=== PATIENT | male | born 1930 | race Caucasian/White ===

== ENCOUNTER 2016-06-10 10:00 | Observation (INO) | payer OTHER ==
[~2016-06-10] VITALS: Ht 182.9 cm; Wt 60.5 kg
[~2016-06-10 10:00] MED LIST: ASPIRIN E.C.81 M1 PO; CLARITIN10 M3 PO; Ecotrin PO; ISOSORBIDE MONO30 MG PO; LIPITOR80 MG PO; LISINOPRIL20 MG PO; LISINOPRIL40 MG PO; LITE COAT ASPI325 M1 PO; LORATADINE10 M2 PO; LOSARTAN POTASS25 MG PO; MIRALAX255 GM PO; MULTI VITAMIN1 EACH PO; NEXIUM40 MG PO; NITROSTAT,NITR0.4 M1 SL; NORVASC5 MG PO; PLAVIX75 MG PO; RANEXA500 MG PO; SALINE NASAL SP45 ML BOTH NARES; TYLENOL EXTRA500 MG PO; ZANTAC75 M1 PO; ZOFRAN4 MG PO; Zestril,Prinivil PO
[2016-06-10] MEDS ORDERED: NORVASC10 MG PO (10:19)
[2016-06-10] MEDS ORDERED: MUCINEX D ER T1 EACH PO (10:19)
[2016-06-10] MEDS ORDERED: BRILINTA60 MG PO (10:24)
[2016-06-10 10:35] LABS: HEMATOCRIT 39.5 % (38.0-50.0); MCH 30.2 PG (29.0-34.0); MCHC 32.9 G/DL (30.0-36.0); MCV 91.9 FL (86-99); MEAN PLAT.VOLUME 9.7 uM^3 (9.0-12.4); PLATELET COUNT 205 K/uL (156-360); RBC DIS.WIDTH-CV 12.8 % (11.8-14.6); WHITE BLOOD COUNT 7.2 K/uL (4.1-10.2)
[2016-06-10 10:41] LABS: CHLORIDE 106 mEq/L (99-109); POTASSIUM 4.1 mEq/L (3.7-5.4); SODIUM 140 mEq/L (136-147)
[2016-06-10 10:42] LABS: GLUCOSE 104 mg/dL (70-99)
[2016-06-10 10:44] LABS: ANION GAP 9 MEQ/L (2-14)
[2016-06-10 10:46] LABS: GFR ESTIMATE (CALCULATED) > 59 mL/min/
[2016-06-10 10:47] LABS: UREA NITROGEN (BUN) 18 mg/dL (9-23)
[2016-06-10 10:53] LABS: TROP-I INTERPRETATION NEGATIVE; TROPONIN-I < 0.01 ng/mL (0.0-0.30)
[2016-06-10 16:21] VITALS: BP 170/80
[2016-06-10 16:33] VITALS: BP 96/57
[2016-06-10 16:34] VITALS: BP 95/51
[2016-06-10 17:10] LABS: TROP-I INTERPRETATION NEGATIVE; TROPONIN-I 0.01 ng/mL (0.0-0.30)
[2016-06-10 20:10] VITALS: BP 163/78
[2016-06-10 23:54] VITALS: BP 120/55
[2016-06-10 23:58] LABS: TROP-I INTERPRETATION NEGATIVE; TROPONIN-I < 0.01 ng/mL (0.0-0.30)
[2016-06-11 04:19] VITALS: BP 125/61
[2016-06-11 08:00] VITALS: BP 153/82
== END 2016-06-11 14:55 | disposition home or self-care (01) ==
LOC: EME 10:00 → 5WEST 14:20 → EDOF 14:20 → 5WEST 16:11
PROVIDERS: Internal Medicine
DX: R07.89 Other chest pain (principal); I35.0 Nonrheumatic aortic (valve) stenosis; I25.10 Atherosclerotic heart disease of native coronary artery without angina pectoris; Z95.1 Presence of aortocoronary bypass graft; Z95.5 Presence of coronary angioplasty implant and graft; I10 Essential (primary) hypertension; E78.5 Hyperlipidemia, unspecified; M19.90 Unspecified osteoarthritis, unspecified site; G89.29 Other chronic pain; M54.9 Dorsalgia, unspecified; Z87.891 Personal history of nicotine dependence; J62.8 Pneumoconiosis due to other dust containing silica
CPT/HCPCS: 71020; 71275; 80048; 84484; 85027; 93005; 99281; 99285; G0378; J1650; J7030